=== PATIENT | male | born 1970 | race American Indian/Alaskan Native ===

== ENCOUNTER 2019-02-20 09:34 | Outpatient (CLI) | payer MEDICAID ==
[2019-02-20 14:10] LABS: Alanine Aminotransferase 22 units/L (7-56); Albumin 4.7 g/dL (3.9-5); BUN/Creatinine Ratio 10; Blood Urea Nitrogen 9 mg/dL (9-20); Calcium 9.6 mg/dL (8.4-10.2); Hemolysis Index 44
[2019-02-20 20:16] LABS: Chol/HDL Ratio 5.02 %; HDL Cholesterol 47 mg/dL (40-59); LDL Cholesterol,Direct 166 mg/dL (50-130)
== END 2019-02-20 09:35 | disposition home or self-care (01) ==
LOC: LAB 09:34
PROVIDERS: ATTEND Internal Medicine
DX: E78.5 Hyperlipidemia, unspecified (principal); R73.9 Hyperglycemia, unspecified
CPT/HCPCS: 36415; 80053; 80061; 84443

== ENCOUNTER 2019-07-05 08:54 | Outpatient (CLI) | payer MEDICAID ==
[2019-07-05 12:17] LABS: Chol/HDL Ratio 3.3 %
== END 2019-07-05 08:55 | disposition home or self-care (01) ==
LOC: LAB 08:54
PROVIDERS: ATTEND Internal Medicine
DX: E78.5 Hyperlipidemia, unspecified (principal)
CPT/HCPCS: 36415; 80061